=== PATIENT | female | born 1990 | race Caucasian/White ===

== ENCOUNTER 2019-09-26 18:32 | Emergency (ER) | payer MEDICAID ==
[2019-09-26] MEDS ORDERED: FLUOXETINE HCL40 MG PO (19:20)
[2019-09-26] MEDS ORDERED: PRENATAL1 TA1 PO (19:21)
[2019-09-26] MEDS ORDERED: SEROQUEL100 MG PO (19:21)
[2019-09-26 19:22] LABS: HEMATOCRIT 30.5 % (37.0-47.0); HEMOGLOBIN 10.1 g/dl (12.0-16.0); IMMATURE GRANULOCYTES 1.6 % (0.0-5.0); MEAN CELL VOLUME 87.9 fL CALC (80.0-100.0); MEAN CORPUSCULAR HGB 29.1 pG CALC (26.0-32.0); MEAN CORPUSCULAR HGB CONC 33.1 g/dL CAL (32.0-36.0); NEUT# 10.56 thou/uL (2.00-7.15); RED BLOOD COUNT 3.47 mill/uL (4.20-5.60); RED CELL DISTRI WIDTH 16.1 % (11.5-15.5)
[2019-09-26 19:28] LABS: ALBUMIN 3.3 g/dL (3.2-5.0); ALKALINE PHOSPHATASE 83 u/l (38-126); ANION GAP 11 (6-22 (CALC)); BILIRUBIN, TOTAL 0.2 mg/dL (0.0-1.4); CARBON DIOXIDE 18 mmol/l (22-30); CHLORIDE 108 mmol/l (95-108); CREATININE 0.3 mg/dL (0.5-1.0); GFR > 60 ML/MIN (>=60 (CALC)); GFR FOR AFR.AMER. > 60 ML/MIN (>=60 (CALC)); LIPASE 78 u/l (23-300); POTASSIUM 3.4 mmol/l (3.5-5.1); SGOT/AST 13 u/l (14-36); SODIUM 133 mmol/l (137-146); TOTAL PROTEIN 5.8 g/dL (6.3-8.2)
[2019-09-26 19:29] LABS: BUN 2 mg/dL (7-17); BUN/CREATININE RATIO 7 (12-20 (CALC))
[2019-09-26 20:09] LABS: URINE BILIRUBIN - DIPSTICK NEGATIVE (NEGATIVE); URINE BLOOD DIPSTICK NEGATIVE (NEGATIVE); URINE COLOR YELLOW; URINE GLUCOSE - DIPSTICK NEGATIVE (NEGATIVE); URINE KETONE NEGATIVE (NEGATIVE); URINE PROTEIN - DIPSTICK 30 mg/dL (NEG-TRACE); URINE SPECIFIC GRAVITY >=1.030; URINE UROBILINOGEN - DIPSTICK 0.2 E.U./dL (0.2)
[2019-09-26 20:12] LABS: URINE LEUK ESTERASE SMALL (NEGATIVE); URINE NITRITE - DIPSTICK POSITIVE (Negative)
[2019-09-26 20:22] LABS: URINE BACTERIA MODERATE hpf; URINE SQUAMOUS EPITHELIAL CELL MANY EPI/hpf (0-FEW)
[2019-09-26 20:23] LABS: URINE TRICHOMONAS FEW hpf; URINE WBC 20-50 WBC/hpf (0-5)
[2019-09-26] MEDS ORDERED: METRONIDAZOL500 MG PO (21:28)
[2019-09-26] MEDS ORDERED: AMOX/K CLAV875 M1 PO (21:28)
[2019-09-26] MEDS ORDERED: TRAMADOL HYDROC50 MG PO (21:28)
[2019-09-26 21:39] VITALS: BP 136/80
== END 2019-09-26 21:45 | disposition home or self-care (01) ==
LOC: ED 18:32
PROVIDERS: Family Medicine
DX: O98.319 Other infections with a predominantly sexual mode of transmission complicating pregnancy, unspecified trimester (principal); A59.01 Trichomonal vulvovaginitis; R82.71 Bacteriuria; Z3A.00 Weeks of gestation of pregnancy not specified

== ENCOUNTER 2019-11-17 13:55 | Emergency (ER) | payer MEDICAID ==
[~2019-11-17] VITALS: Ht 167.6 cm; Wt 90.0 kg
[~2019-11-17 13:55] MED LIST: AMOX/K CLAV875 M1 PO; FLUOXETINE HCL40 MG PO; METRONIDAZOL500 MG PO; PRENATAL1 TA1 PO; SEROQUEL100 MG PO; TRAMADOL HYDROC50 MG PO
[2019-11-17 15:02] LABS: HEMATOCRIT 32.8 % (37.0-47.0); HEMOGLOBIN 11.3 g/dl (12.0-16.0); IMMATURE GRANULOCYTES 1.7 % (0.0-5.0); MEAN CELL VOLUME 88.9 fL CALC (80.0-100.0); MEAN CORPUSCULAR HGB 30.6 pG CALC (26.0-32.0); MEAN CORPUSCULAR HGB CONC 34.5 g/dL CAL (32.0-36.0); NEUT# 7.7 thou/uL (2.00-7.15); RED BLOOD COUNT 3.69 mill/uL (4.20-5.60); RED CELL DISTRI WIDTH 14.8 % (11.5-15.5)
[2019-11-17 15:19] LABS: PROTHROMBIN TIME 9.9 SECONDS (9.0-12.5)
[2019-11-17 15:20] LABS: ANION GAP 11 (6-22 (CALC)); BUN < 2 mg/dL (7-17); CARBON DIOXIDE 19 mmol/l (22-30); CHLORIDE 107 mmol/l (95-108); CREATININE 0.4 mg/dL (0.5-1.0); GFR > 60 ML/MIN (>=60 (CALC)); GFR FOR AFR.AMER. > 60 ML/MIN (>=60 (CALC)); POTASSIUM 3.7 mmol/l (3.5-5.1); SGOT/AST 17 u/l (14-36); SODIUM 133 mmol/l (137-146); TOTAL PROTEIN 5.5 g/dL (6.3-8.2)
[2019-11-17 15:31] LABS: ALKALINE PHOSPHATASE 136 u/l (38-126); BILIRUBIN, TOTAL 0.3 mg/dL (0.0-1.4)
[2019-11-17 15:50] VITALS: BP 118/56
== END 2019-11-17 15:50 ==
LOC: ED 13:55
PROVIDERS: Student in an Organized Health Care Education/Training Program
DX: O14.93 Unspecified pre-eclampsia, third trimester (principal); Z3A.35 35 weeks gestation of pregnancy
CPT/HCPCS: J3475